=== PATIENT | male | born 1990 | race Two or more races ===

== ENCOUNTER 2021-02-21 11:15 | Outpatient (REF) | payer BC, SELFPAY ==
--- NOTE | ~2021-02-21 | XR_ITS ---
EXAMINATION: XR ANKLE, LEFT CLINICAL INFORMATION: Ankle injury. COMPARISON: None. TECHNIQUE: AP, lateral, and mortise views of the left ankle. FINDINGS: Marked bilateral soft tissue swelling is seen. A small ankle effusion is present. No fracture is seen. There is a tiny calcific density seen adjacent to the talus, near the distal fibula, which is of questionable significance but does not appear to be a fracture. The ankle mortise appears stable. XR/XR ankle LT min 3V IMPRESSION: Soft tissue swelling with no acute fracture.
== END 2021-02-21 11:16 | disposition home or self-care (01) ==
LOC: HO.XRAY 11:15
PROVIDERS: PCP Internal Medicine; Visit Provider Emergency Medicine
DX: S99.912A Unspecified injury of left ankle, initial encounter (principal); X58.XXXA Exposure to other specified factors, initial encounter; Y93.9 Activity, unspecified; Y92.9 Unspecified place or not applicable; Y99.9 Unspecified external cause status
CPT/HCPCS: 73610

== ENCOUNTER 2024-06-25 10:03 | Outpatient (REF) | payer BC, SELFPAY ==
[2024-06-25 11:23] LABS: MANUAL DIFF FLAG NO
[2024-06-25 11:26] LABS: Basophils Percent Auto 0.4 % (0-2); Eosinophils Absolute Auto 0.3 X10*3/uL (0.0-0.4); Eosinophils Percent Auto 3.6 % (0-4); Hematocrit 40.6 % (42.0-52.0); Hemoglobin 13.6 g/dl (14.0-18.0); Imm Gran Abs Auto 0.01 X10*3/uL (0.00-0.03); Imm Gran Pct Auto 0.1 % (0.0-0.4); Lymphocytes Absolute Auto 1.3 X10*3/uL (1.2-4.9); Lymphocytes Percent Auto 18.2 % (20-40); Mean Corpuscular HGB Conc 33.5 g/dl (31.0-36.0); Mean Corpuscular Hemoglobin 30.5 pg (27.0-33.0); Mean Platelet Volume 12.6 fL (9.4-12.4); Monocytes Absolute Auto 0.8 X10*3/uL (0.1-1.2); Monocytes Percent Auto 11.5 % (2-11); Neutrophils Absolute Auto 4.7 x10*3/uL (2.0-8.3); Neutrophils Percent Auto 66.2 % (45-73); Platelet Count 194 X10*3/uL (160-400); Red Blood Count 4.46 X10*6/uL (4.60-5.80); White Blood Count 7.2 X10*3/uL (4.8-10.8)
[2024-06-25 11:36] LABS: Estimated Average Glucose 103 mg/dL; Hemoglobin A1C 111.1377 umol/L; Hemoglobin A1c % 5.2 % (<6.0); Total Hemoglobin (HGBA1C) 3335.5205 umol/L
[2024-06-25 12:04] LABS: Alanine Aminotransferase 38 U/L (0-40); Alkaline Phosphatase 73 U/L (39-117); Anion Gap 9 (12-20); Aspartate Amino Transferase 47 U/L (5-37); Bilirubin Total 0.4 mg/dL (0.0-1.0); Blood Urea Nitrogen 31 mg/dL (9-16); Calcium 9.4 mg/dL (8.4-10.2); Carbon Dioxide 29 mmol/L (22-29); Chloride 104 mmol/L (96-108); Cholesterol 148 mg/dL (<200); Estimated Glomerular Filt Rate > 60; Glucose Random 85 mg/dL (60-115); HDL Cholesterol 53 mg/dL (>40); LDL Cholesterol Calculated 85 mg/dL (<100); Potassium 4.4 mmol/L (3.3-5.1); Sodium 138 mmol/L (135-145); TSH reflex Free T4 1.52 uIU/mL (0.32-4.0); Total Protein 7.7 g/dL (6.5-8.0); Triglycerides 54 mg/dL (<150); Vitamin D 25-OH Total 80.8 ng/mL (>30)
[2024-06-25 12:08] LABS: HIV AB/AG Nonreactive (Nonreactive); HIV Num 1 0.08 S/CO (0.00-0.99); ~HepC Num1 0.23 S/CO (0.00-0.79); ~Hepatitis C Antibody Nonreactive (Nonreactive)
== END 2024-06-25 10:04 | disposition home or self-care (01) ==
LOC: HO.HHCL 10:03
PROVIDERS: Visit Provider Internal Medicine
DX: Z00.00 Encounter for general adult medical examination without abnormal findings (principal); R20.9 Unspecified disturbances of skin sensation; Z13.1 Encounter for screening for diabetes mellitus; D64.9 Anemia, unspecified
CPT/HCPCS: 36415; 80053; 80061; 82306; 83036; 84443; 85025; 86803; 87389

== ENCOUNTER → 2024-07-18 19:00 | Outpatient (BNV) | payer BC, SELFPAY | PROVIDERS: PCP Internal Medicine; Visit Provider Psychiatry & Neurology Neurology | DX: G47.10 Hypersomnia, unspecified (principal) | CPT/HCPCS: 95810 ==

== ENCOUNTER → 2024-07-18 20:30 | Outpatient (REF) | payer BC, SELFPAY | LOC: HO.SL 20:30 | PROVIDERS: PCP Internal Medicine; Visit Provider Internal Medicine | DX: G47.13 Recurrent hypersomnia (principal) | CPT/HCPCS: 95810 ==

== ENCOUNTER 2024-07-19 08:50 | Outpatient (AMB) | payer BC, SELFPAY ==
--- NOTE | 2024-07-19 08:52 | MHC.OFFVIS ---
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 Patient reports that he was over weight, the pain had started in the right knee. The pain in the right knee was explained as a pinching sensation in the right knee. He has since lost about 50 lbs and stays active in the gym & plays basketball. While playing basketball over the summer he slipped on sticks that were on the court and planted ther right leg hard and believes that it hyperextended. Since then he has continued pain while exercising, particularly with squats and lunges. 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 Patient reports that he was over weight, the pain had started in the right knee. The pain in the right knee was explained as a pinching sensation in the right knee. He has since lost about 50 lbs and stays active in the gym & plays basketball. While playing basketball over the summer he slipped on sticks that were on the court and planted ther right leg hard and believes that it hyperextended. Since then he has continued pain while exercising, particularly with squats and lunges. 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 No effusion. Mild lateral patellar tilt bilaterally with mild crepitus but no pain and negative provocative exams. Stable ligamentous exam. Assessment & Plan Assessment & Plan (1) Patellofemoral crepitus: Code(s): M23.8X9 - Other internal derangements of unspecified knee Category: Medical Plan: There is some mild patellar lateral tilting bilaterally and he describes some discomfort with deep squats in his curious about how to continue to improve his function and strength without irritating his knees. I described to him some of the anatomy of the patellofemoral joint and I think avoiding deep squats focusing on hip so in the gluteals and stretching his heel cords would be beneficial. I wrote him a prescription for physical therapy. Plan Physical Therapy - [facility] Coding Level of Care Code New Pt Level 3 (18029) Diagnoses Patellofemoral crepitus M23.8X9
[2024-07-19 08:57] VITALS: BMI 27.9
== END 2024-07-19 09:13 | disposition home or self-care (01) ==
LOC: HO.HOS 08:51
PROVIDERS: PCP Internal Medicine; Visit Provider Orthopaedic Surgery
DX: M23.8X9 Other internal derangements of unspecified knee (principal)
CPT/HCPCS: 99203

== ENCOUNTER → 2024-07-19 08:50 | Outpatient (BNVA) | payer BC, SELFPAY | PROVIDERS: PCP Internal Medicine; Visit Provider Orthopaedic Surgery ==

== ENCOUNTER 2024-09-24 14:29 | Outpatient (AMB) | payer BC, SELFPAY ==
--- NOTE | 2024-09-24 14:33 | MHC.OFFVIS ---
Intake Visit Reasons: fertility consult Intake Note: Patient is present for FERTILITY CONSULT Urology Medication:NONE Antibiotic Allergy:NONE Blood Thinner:NONE Conductor And Engineer Required: No Allergies No Known Allergies Allergy (Verified 09/24/24 14:33) HPI Comments Details: Huber is a pleasant male. He is a patient of Dr. Mak. He is seen for the following urologic conditions - male infertility Male Infertility He presents today for - initial evaluation of male infertility Duration of infertility partner over 35 trying for greater than 1 year Prior no Coital timing - Patient is familiar with basal temperature monitoring to protect egg release Yes Puberty onset - 10 Prior genital surgery - none Risk factors for fertility include - present none - absent varicocele, genital infection, cryptorchidism, hormonal disorder, genetic disorder, cirrhosis, diabetes, gonadotoxin exposure - chemotherapy, radiation, occupational chemical, hyperthermia, cigarette Laboratories - pending Semen analysis - planned x2 - total motile sperm [] - consistent with [severe infertility, moderate infertility] - parameters include [volume low < 1.5cc, pH < 7.2] - morphology [normospermia, azoospermia, oligospermia, asthenospermia] Genetics - CFTR, Y chromosome micro deletion, Karyotype - [] [[facility] Ordering - [id number] - Chromosome Analysis, 32681- CFTR, 11410 - Y Chromosome Deletion] Therapeutic plan includes - complete evaluation References for Semen and Testosterone Enhancement Albert A, Chana D, Low C, Nicholas FD, Nida M, Christin A, Vena W, Baraby MG, Pivsravanthio R, Saydari AM, Peg M, Mahmood G. Effect of antioxidants on semen parameters in men with zcdup-rhermlw-bgvgnnydogxtpjtn: a network meta-analysis. Andrology. 2023;12(3):538-552. doi: 10.1111/andr.90111. Epub 2022Apr 09. PMID: 73840894. Compared to placebo,?l-carnitine, especially in combination with?p-ebtydv-ewrgesgvy (LAC), had the highest SUCRA for sperm concentration, progressive motility, and morphology. Folate was the only other compound effective on sperm concentration. Vitamin E+selenium or zinc had the highest SUCRA for total motility. A contribution on progressive motility was revealed for pentoxifylline and vitamin E+CoQ10 Shuling L, David Granado ML, Robbin SE, Maria Isabel Z, Asher TT, Gina JPW, Jules-Karol V, Lebron S, Prince JKY, Laureano TH. Do men with normal testosterone-oestradiol ratios benefit from letrozole for the treatment of male infertility? Reprod Biomed Online. 2018;38(1):39-45. doi: 10.1016/j.rbmo.2018.09.016. Epub 2017Jul 14. PMID: 97440200. Letrozole improves sperm concentration and increases testosterone-oestradiol ratio for men with oligozoospermia who have normal testosterone-oestradiol ratio. 2.5mg daily Chester A, Reanna C, Cornelio G, Dmitry Amado, Michael HO. Early Pharmacologic Approaches to Avert Anabolic Steroid-induced Male Infertility: A Narrative Review. Clin Ther. 2022;45(11):f238-q657. doi: 10.1016/j.clinthera.2022.09.003. Epub 2022Jun 20. PMID: 40860774. 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, face and neck Social History (Updated 07/19/24 @ 08:57 by Melisa Jacob CMA) Current occupational status: employed 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 Review of Systems Const Denies chills and Denies fever(s) Card Reports no additional complaints and Denies syncope Resp Denies cough GI Denies abdominal pain and Denies heartburn Reports as per HPI and Denies change in libido Neuro Denies syncope Psych Denies change in libido Endo Denies change in libido Physical Exam Const General: cooperative, healthy appearing, comfortable and no acute distress Orientation/consciousness: patient oriented x3 HEENT Face and sinus: Yes normal facial exam Mouth: moist mucous membranes Neck Neck: Yes normal visual inspection, Yes full ROM and Yes trachea midline Chest Chest palpation & inspection: normal inspection of the chest Resp Effort & Inspection: normal respiratory effort, able to speak in complete sentences and no respiratory distress GI Inspection: Yes normal to inspection Back/Spine/Pelvis Cervical Spine: normal cervical lordosis Thoracic/Lumbar Spine: thoracic and lumbar spine normal to inspection Skin General skin exam: no rashes or lesions noted Neuro General: patient oriented x3, gait normal, tone normal and moves all extremities Extrem General: Yes normal to inspection and Yes capillary refill normal Assessment & Plan Assessment & Plan (1) Male infertility, unspecified: Code(s): N46.9 - Male infertility, unspecified Category: Medical Plan Baseline lab work Complete fellows semen analysis Orders: Orders Follicle Stimulating Hormone Today N46.9 - Male infertility, unspecified Lutenizing Hormone Today N46.9 - Male infertility, unspecified Testosterone, Free/Total Today N46.9 - Male infertility, unspecified Prolactin Today N46.9 - Male infertility, unspecified Patient Instructions: Imaging studies, laboratory and physical exam results were discussed and reviewed in detail. No major barriers to patient understanding were identified. An opportunity to ask questions regarding the treatment plan was provided. All questions were answered. The patient expressed understanding and agreement with the above treatment plan. The patient is aware they should contact our office by phone for worsening of their current condition or the appearance of new urologic symptoms. Compliance is encouraged with any medications and followup testing that is ordered. It is a privilege to participate in the urologic care of your patient. If you have any questions or concerns regarding treatment for the above conditions, or other urologic issues, please do not hesitate to contact me. The office telephone contact is [phone]. This note is constructed using voice recognition software. While every effort has been made to ensure accuracy closet organizer errors may have been included. Yours sincerely, Dr Kuldeep Baumann MD, [facility] - Urology Providers of Expert, Compassionate Care for the Genitourinary System Coding Level of Care Code New Pt Level 4 (92947) Diagnoses Male infertility, unspecified N46.9
== END 2024-09-24 15:09 | disposition home or self-care (01) ==
PROVIDERS: PCP Internal Medicine; Visit Provider Urology
DX: N46.9 Male infertility, unspecified (principal)
CPT/HCPCS: 99204

== ENCOUNTER 2024-09-24 14:29 | Outpatient (REF) | payer BC, SELFPAY ==
[2024-09-24 15:30] LABS: MANUAL DIFF FLAG NO
[2024-09-24 15:38] LABS: Basophils Percent Auto 0.3 % (0-2); Eosinophils Absolute Auto 0.3 X10*3/uL (0.0-0.4); Eosinophils Percent Auto 3.7 % (0-4); Hematocrit 40.9 % (42.0-52.0); Hemoglobin 13.8 g/dl (14.0-18.0); Imm Gran Abs Auto 0.03 X10*3/uL (0.00-0.03); Imm Gran Pct Auto 0.4 % (0.0-0.4); Lymphocytes Absolute Auto 1.6 X10*3/uL (1.2-4.9); Mean Corpuscular HGB Conc 33.7 g/dl (31.0-36.0); Mean Corpuscular Hemoglobin 29.9 pg (27.0-33.0); Mean Corpuscular Volume 88.7 fL (80.0-98.0); Mean Platelet Volume 11.4 fL (9.4-12.4); Monocytes Absolute Auto 0.9 X10*3/uL (0.1-1.2); Monocytes Percent Auto 11.2 % (2-11); Neutrophils Percent Auto 64.4 % (45-73); Platelet Count 210 X10*3/uL (160-400); Red Blood Count 4.61 X10*6/uL (4.60-5.80); Red Cell Distribution Width 12.5 % (11.0-16.0); White Blood Count 7.8 X10*3/uL (4.8-10.8)
[2024-09-24 16:12] LABS: Iron 70 mcg/dL (45-160); Percent Iron Saturation 27 % (15-50); Total Iron Binding Capacity 257 mcg/dL (228-428); Unsaturated Iron Binding 187 ug/dL
[2024-09-24 16:33] LABS: Ferritin 147 ng/mL (20-250)
[2024-09-24 16:38] LABS: Folate 9.2 ng/mL (> or = 4.0); Vitamin B12 1448 pg/mL (200-900)
[2024-09-26 02:58] LABS: Follicle Stimulating Hormone 2.6 mIU/mL (1.4-12.8); Prolactin 9.2 ng/mL (2.0-18.0)
[2024-09-30 16:19] LABS: Testosterone, Free 66.5 pg/mL (35.0-155.0); Testosterone, Total 380 ng/dL (250-1100)
== END 2024-09-24 14:30 | disposition home or self-care (01) ==
LOC: HO.LAB 14:29
PROVIDERS: PCP Internal Medicine; Visit Provider Urology
DX: N46.9 Male infertility, unspecified (principal); D64.9 Anemia, unspecified
CPT/HCPCS: 36415; 82607; 82728; 82746; 83001; 83002; 83540; 84146; 84402; 84403; 85025

== ENCOUNTER 2025-05-20 11:02 | Outpatient (REF) | payer BC, SELFPAY ==
--- OUTSIDE RECORDS SUMMARY | 2025-05-20 09:45 | XMS_ITS | Encounter Summary ---
Author Organization [facility] Address [address] [place] [address] [address] [place] [address] Care Team Providers Care Systems Analyst Developer Name Role Phone Corie Cortes MD Primary Care Provide r Reason for Referral * Consultation (Routine) - Pending Review Specialty Diagnoses / Procedures Referred By Obi silva Referred To Contact Physical Therapy Diagnoses Right sciatic nerve pain Corie Cortes MD [address] [place] [phone] Phone: tel: fax: Referral ID Status Reason Start Date Expiration Date Visits Requested Visits Authorized [id number] Pending Review Specialty Services Required 05/20/2025 05/20/2026 1 1 Scheduling Instructions Please [facility] thank you Reason for Visit * Reason Comments Follow-up Encounter Details Date Type Department Care Team ([facility] st Contact Info) Description 05/20/2025 9:45 AM EDT Office Visit [facility] [address] [place] [address] [phone] Corie Cortes MD [address] [place] [address] [phone] 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 (Primary Dx); Right sciatic nerve pain; Elevated LFTs; Anemia, unspecified type; Encounter for immunization Social History Tobacco Use Types Packs/Day Years Used Date Smoking Tobacco: Never Passive Smoke Exposure: Never Smokeless Tobacco: Never Depression Answer Date Recorded Patient Health Questionnaire-9 Score 0 06/25/2024 Patient Health Questionnaire-9 Score 0 06/25/2024 Last PHQ-9: Questionnaire Data Not on file 1 Housing Stability Answer Date Recorded What is your housing situation today? I have john rodriguez 06/25/[address] you li ve. Do you have problems with any of the following? None of the above 06/25/2024 Food Insecurity Answer Date Recorded Within the past 12 months, y ou worried that your food would run out before you got money to buy more: Never True 06/25/2024 Within the past 12 months,th e food you bought just didn't last and you didn't have enough money to get more: Never True 07/2024 Transportation Answer Date Recorded In the past 12 months, has l ack of transportation kept you from medical appts, meetings, work or from getting things needed for daily living? No 06/25/2024 Utilities Answer Date Recorded In the past 12 months, has t he electric, gas, oil or water company threatened to shut off services in your home? No 06/25/2024 Depression Answer Date Recorded Patient Health Questionnaire-2 Score 0 06/25/2024 Internet Access Answer Date Recorded Internet Access Q1 Yes 06/25/2024 Internet Access Q2 Not on file 06/25/2024 Sex and Gender Information Value Date Recorded Sex Assigned at Male 07/15/2022 10:35 AM EDT Legal Sex Male 10:35 AM EDT Gender Identity Male 07/15/2022 10:35 AM EDT Sexual Orientation Straight 07/15/2022 10 :35 AM EDT documented as of this encounter Last Filed Vital Signs Vital Sign Reading Time Taken Comments Blood Pressure 118/80 05/20/2025 9:50 AM EDT Pulse 80 05/20/2025 9:50 AM EDT Temperature 36.5 C (97.7 F) 05/20/2025 9:50 AM EDT Respiratory Rate 20 05/20/2025 9:50 AM EDT Oxygen Saturation - - Inhaled Oxygen Concentration - - Weight 96.6 kg (213 lb) 05/20/2025 9:50 AM EDT Height 188 cm (6' 2 ) 05/20/2025 9:50 AM EDT Body Mass Index 27.35 05/20/2025 9:50 AM EDT documented in this encounter Plan of Treatment Upcoming Encounters Date Type Department Care Team (Late st Contact Info) Description 06/20/2025 10:30 AM EDT Office Visit [facility] [address] [place] [phone] 06/29/2025 11:15 AM EDT Office Visit [facility] [address] [place] [phone] Corie Cortes MD [address] [place] [address] Scheduled Orders Name Type Priority Associated Diagnoses Orde r Schedule Comprehensive Metabolic Panel Lab Routine Elevated LFTs Expected: 05/20/2025 (Approximate), Expires: 05/20/2026 CBC auto differential Lab Routine Anemia, unspecified type Expected: 05/20/2025 (Approximate), Expires: 05/20/2026 Scheduled Referrals Name Type Priority Associated Diagnoses Orde r Schedule Referral to Physical Therapy Outpatient Referral Routine Right sciatic nerve pain Expected: 05/20/2025 (Approximate), Expires: 05/20/2026 documented as of this encounter Visit Diagnoses Diagnosis 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- Primary Right sciatic nerve pain Elevated LFTs Other abnormal blood chemistry Anemia, unspecified type Encounter for immunization documented in this encounter Additional Health Concerns Assessment Noted Time PHQ-9 Depression Total Score: 0 06/25/20 24 9:06 AM EDT documented as of this encounter Care Teams Systems Analyst Developer Relationship Specialty Start Date End Date Corie Cortes MD [address] [place] [phone] PCP - General Family Medicine 11/30/18 documented as of this encounter
--- OUTSIDE RECORDS SUMMARY | 2025-05-20 12:04 | XMS_ITS | Encounter Summary ---
Author Organization [employer] Address [address] [facility] 7[address] [place] [address] Care Team Providers Care Agriscience Teacher Name Role Phone Corie Cortes MD Primary Care Provide r Encounter Details Date Type Department Care Team (Latest Contact Info) Description 05/20/2025 Travel Social History Tobacco Use Types Packs/Day Years [...] AM EDT documented as of this encounter Plan of Treatment Upcoming Encounters Date Type Department Care Team (Late st Contact Info) Description 06/20/2025 10:30 AM EDT Office Visit [facility] [address] [place] [phone] 06/29/2025 11:15 AM EDT Office Visit [facility] [address] [place] [phone] Corie Cortes MD [address] [place] [phone] documented as of this encounter Visit Diagnoses Not on filedocumented in this encounter Additional Health Concerns Assessment Noted Time PHQ-9 Depression Total Score: 0 06/25/20 24 9:06 AM EDT documented as of this encounter Care Teams Agriscience Teacher Relationship Specialty Start Date End Date Corie Cortes MD [address] [place] [phone] PCP - General Family Medicine 11/30/18 documented as of this encounter
--- OUTSIDE RECORDS SUMMARY | 2025-05-20 12:04 | XMS_ITS | Encounter Summary ---
Author Organization [employer] Address [address] [facility] 7 [place] [address] Care Team Providers Care Vp Cardiovascular Name Role Phone Corie Cortes MD Primary Care Provide r Reason for Visit * Reason Onset Date Comments chart prep 05/19/2025 Encounter Details Date Type Department Care Team ([facility] st Contact Info) Description 05/19/[address] [facility] [address] [place] [address] Corie Cortes MD [address] [place] [address] chart prep Social History Tobacco Use Types Packs/Day Years [...] AM EDT documented as of this encounter Miscellaneous Notes * Telephone Encounter - Cary Alexis MA - 05/19/2025 10:46 AM EDT Chart Prep Labs: done Images: not done ( No show to US abdomen 07/12/2024) Referrals: complete Vaccines due: Covid, Flu, Hep B, and HPV Screenings: not applicable Overdue care gaps: SBIRT, PHQ-9, TRACIE-7, and Tobacco documented in this encounter Plan of Treatment Upcoming Encounters Date Type Department Care Team (Late st Contact Info) Description 06/20/2025 10:30 [address] EDT Office [address] [facility] [address] [place] [phone] 06/29/2025 11:15 AM EDT Office [address] [facility] [address] [place] [phone] Corie Cortes MD [address] [place] [phone] documented as of this encounter Visit Diagnoses Not on filedocumented in this encounter Additional Health Concerns Assessment Noted Time PHQ-9 Depression Total Score: 0 06/25/20 24 9:06 AM EDT documented as of this encounter Care Teams Vp Cardiovascular Relationship Specialty Start Date End Date Corie Cortes MD [address] [place] [address] PCP - General Family Medicine 11/30/18 documented as of this encounter
--- OUTSIDE RECORDS SUMMARY | 2025-05-20 12:05 | XMS_ITS | Encounter Summary ---
Author Organization [employer] Address [address] [facility] [address] 7[address] [place] [address] Care Team Providers Care Managing Director Name Role Phone Corie Cortes MD Primary Care Provide r Encounter Details Date Type Department Care Team ([facility] st Contact Info) Description 09/27/2024 Orders Only [facility] [address] [place] [address] Corie Cortes MD [address] [place] [address] Social History Tobacco Use Types Packs/Day Years [...] Description 06/20/2025 10:30 AM EDT Office Visit [facility] [address] [place] [phone] 06/29/2025 11:15 AM EDT Office Visit [address] [address] Corie Cortes MD [address] [place] [phone] documented as of this encounter Visit Diagnoses Not on filedocumented in this encounter Additional Health Concerns Assessment Noted Time PHQ-9 Depression Total Score: 0 06/25/20 24 9:06 AM EDT documented as of this encounter Care Teams Managing Director Relationship Specialty Start Date End Date Corie Cortes MD [address] [place] [phone] PCP - General Family Medicine 11/30/18 documented as of this encounter
--- OUTSIDE RECORDS SUMMARY | 2025-05-20 12:05 | XMS_ITS | Clinical Summary ---
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/12/2023 Dermatitis, contact, from chemicals 02/12/2023 Obesity 02/11/2023 Bradycardia 02/11/2023 Lipoma of skin and subcutaneous tissue of neck 0 11/05/2018 Alopecia 11/05/2018 Encounters Date Type Department Care Team Description 05/20/2025 9:45 AM EDT Office Visit [facility] [address] [place] [address] [phone] Corie Cortes MD 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 (Primary Dx); Right sciatic nerve pain; Elevated LFTs; Anemia, unspecified type; Encounter for immunization 05/20/2025 Travel 05/19/2025 Telephone [facility] [address] [place] [address] Corie Cortes MD chart prep 05/13/2025 Travel 05/11/2025 Patient Outreach [facility] [address] [place] [address] Corie Cortes MD Pre-visit Planning (SDOH screening completed on 02/22/2025) 02/22/2025 Telephone [facility] [address] [place] [address] Corie Cortes MD SEP REACLL 02/22/2025 Patient Outreach [facility] [address] [place] [address] Corie Cortes MD from Last 3 Months Immunizations Immunization Administration Dates Next Due HepB-CpG 05/20/2025 Influenza injectable quadrivalent preservative f ree 11/05/2018 Influenza, seasonal, injectable, preservative fr ee 06/25/2024 Moderna Covid-19 Vaccine 12+ 02/16/2021,01/20/20 21 Tdap 11/05/2018 Varicella 12/07/2018 Social History Tobacco Use Types Packs/Day Years Used Date Smoking Tobacco: Never Passive Smoke Exposure: Never Smokeless Tobacco: Never Tobacco Cessation:Counseling Given: Not Answered Depression Answer Date Recorded Patient Health Questionnaire-9 [...] Orientation Straight 07/15/2022 10 :35 AM EDT Last Filed Vital Signs Vital Sign Reading Time Taken Comments Blood Pressure 118/80 05/20/2025 9:50 AM EDT Pulse 80 05/20/2025 9:50 AM EDT Temperature 36.5 C (97.7 F) 05/20/2025 9:50 AM EDT Respiratory Rate 20 05/20/2025 9:50 AM EDT Oxygen Saturation 98% 06/25/2024 9:03 AM EDT Inhaled Oxygen Concentration - - Weight 96.6 kg (213 lb) 05/20/2025 9:50 AM EDT Height 188 cm (6' 2 ) 05/20/2025 9:50 AM EDT Body Mass Index 27.35 05/20/2025 9:50 AM EDT Plan of Treatment Upcoming Encounters Date Type Department Care Team (Late st Contact Info) Description 06/20/2025 10:30 AM EDT Office Visit [facility] [address] [place] [phone] 06/29/2025 11:15 AM EDT Office Visit [facility] [address] [place] [phone] Corie Cortes MD [address] [place] [phone] Health Maintenance Due Date Last Done Comments Family Planning (PISQ) 12/14/2003 HPV Vaccines (1 - Male 3-dos e series) 12/14/2003 COVID-19 Vaccine ( - 2024-2 6 season) 2025 02/16/2021, 01/19/2021 Influenza Vaccine (#1) 2025 , 11/05/2018 Hepatitis B Vaccines (2 of 2 - CpG 2-dose series) 06/17/2025 05/20/2025 Alcohol/Substance Use Screening 06/25/2025 06/25/2024 Depression Screening 06/25/2025 06/25/2024, 06/25/2024 Tobacco Screening 06/25/2025 06/25/2024 SDOH Screening 02/22/2026 02/22/2025 Disability Screening 05/13/2026 05/13/2025 DTaP/Tdap/Td Vaccines (2 - T d or Tdap) 11/05/2028 11/05/2018 Lipid Panel 06/25/2029 06/25/2024, 11/16/2021 Zoster Vaccines (1 of 2) 2038 RSV Patients and Patients Aged 60 years or older (1 - 1-dose 75+ series) 12/14/2063 HIV Screening Completed 06/25/2024, 11/16/2021 Hepatitis C Screening Completed 06/25/2024 , 11/16/2021 HIB Vaccines Aged Out No longer eligi ble based on patient's age to complete this topic Hepatitis A Vaccines Aged Out No long er eligible based on patient's age to complete this topic IPV Vaccines Aged Out No longer eligi ble based on patient's age to complete this topic Meningococcal B Vaccine Aged Out No l onger eligible based on patient's age to complete this topic Meningococcal Vaccine Aged Out No sai nacho eligible based on patient's age to complete this topic Pneumococcal Vaccine: Pediatrics (0 to 5 Years) and At-Risk Patients (6 to 49) Years Aged Out No longer eligible b ased on patient's age to complete this topic RSV under 20 months Aged Out No longe r eligible based on patient's age to complete this topic Rotavirus Vaccines Aged Out No longer eligible based on patient's age to complete this topic Procedures Procedure Name Priority Date/Time Associated Diagnosis Comments HEPATITIS C AB W/REFL TO HCV RNA, QN, PCR Routine 06/25/2024 10:05 AM EDT Encounter for preventive care HIV 1/2 ANTIGEN/ANTIBODY, FOURTH GENERATION W/RFL Routine 06/25/2024 10:05 AM EDT Encounter for preventive care LIPID PANEL, STANDARD Routine 06/25/2024 10:05 AM EDT Encounter for preventive care from Last 3 Months or Most Recently Relevant to Health Maintenance Results * Hepatitis C Antibody with Reflex to HCV, RNA, Quantitative, Real-Time PCR (06/25/2024 10:05 AM EDT) Hepatitis C Antibody Nonreactive Nonreactive [facility] Comment:Antibodies to HCV no t detected; does not exclude early acuteHCV infection. Blood Venous blood specimen / Unknown 06/25/2024 10:05 AM EDT 06/25/2024 11:17 AM EDT Corie Mak MD LAB BLOOD ORDERABLES Final Result [facility] [address] [place] [phone] * HIV-1/2 Antigen and Antibodies, Fourth Generation, with Reflexes (06/25/2024 10:05 AM EDT) HIV AB/AG Nonreactive Nonreactive [facility] Comment:HIV-1 p24 Ag and/or HIV-1/HIV-2 Ab not detected.A test result that is nonreactive does not exclude thepossibility of exposure to or infection with HIV-1 and/orHIV-2. Nonreactive results in this assay for individualswith prior exposure to HIV-1 and/or HIV-2 may be due toantigen and antibody levels that are below the limit ofdetection of this assay.The XODISniReframe It HIV Ag/Ab Combo assay result andsupplemental assay results should be interpreted inconjunction with the patient's clinical presentation,history and other laboratory results. If the results areinconsistent with clinical evidence, additional testing issuggested to confirm the result. Blood Venous blood specimen / Unknown 06/25/2024 10:05 AM EDT 06/25/2024 11:17 AM EDT us Corie Mak MD LAB BLOOD ORDERABLES Final Result Performing Organization Address [facility] Co de Phone Number [facility] [address] [place] [phone] * Lipid Panel, Standard (06/25/2024 10:05 AM EDT) Triglycerides 54 <150 mg/dL [facility] Comment:Desirable Triglyceri de: less than 150 mg/dLBorderline High Triglyceride 150-199 mg/dLHigh Triglyceride: 200-499 mg/dLVery High Triglyceride: greater than or equal to 5OO mg/dL Cholesterol 148 <200 mg/dL [facility] Comment:Desirable Cholestero l: less than 200 mg/dLBorderline High Cholesterol: 200-239 mg/dLHigh Cholesterol: greater than 239 mg/dL LDL Cholesterol Calculated 85 <100 mg/dL [facility] Comment:Desirable LDL: less than 100 mg/dLNear Optimal/Above Optimal LDL: 110- 129 mg/dLBorderline High LDL: 130-159 mg/dLHigh LDL: 160-189 mg/dLVery High LDL: greater than or equal to 190 mg/dL HDL Cholesterol 53 >40 mg/dL [facility] Comment:Desirable HDL: great er than 40 mg/dL Note: This HDL assay may give artificially low results in patients with liver disease. 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
[2025-05-20 13:08] LABS: MANUAL DIFF FLAG NO
[2025-05-20 13:23] LABS: Hematocrit 39.4 % (42.0-52.0); Hemoglobin 13.3 g/dl (14.0-18.0); Imm Gran Abs Auto 0.01 X10*3/uL (0.00-0.03); Imm Gran Pct Auto 0.1 % (0.0-0.4); Lymphocytes Absolute Auto 1.2 X10*3/uL (1.2-4.9); Mean Corpuscular HGB Conc 33.8 g/dl (31.0-36.0); Mean Corpuscular Hemoglobin 30.0 pg (27.0-33.0); Mean Corpuscular Volume 88.7 fL (80.0-98.0); NRBC Abs Auto 0.000 X10*3/uL (0.0-0.012); NRBC Pct Auto 0.0 /100WBC (0.0-0.2); Platelet Count 210 X10*3/uL (160-400); Red Blood Count 4.44 X10*6/uL (4.60-5.80); White Blood Count 7.3 X10*3/uL (4.8-10.8)
[2025-05-20 13:47] LABS: Alanine Aminotransferase 51 U/L (0-40); Albumin Level 4.1 g/dL (3.5-5.0); Alkaline Phosphatase 68 U/L (39-117); Anion Gap 11 (12-20); Aspartate Amino Transferase 57 U/L (5-37); Blood Urea Nitrogen 27 mg/dL (9-16); Calcium 9.1 mg/dL (8.4-10.2); Carbon Dioxide 26 mmol/L (22-29); Chloride 105 mmol/L (96-108); Estimated Glomerular Filt Rate > 60; Potassium 4.2 mmol/L (3.3-5.1); Sodium 138 mmol/L (135-145); Total Protein 7.3 g/dL (6.5-8.0)
== END 2025-05-20 11:03 | disposition home or self-care (01) ==
LOC: HO.HHCL 11:02
PROVIDERS: PCP Internal Medicine; Visit Provider Internal Medicine
DX: R79.89 Other specified abnormal findings of blood chemistry (principal); D64.9 Anemia, unspecified
CPT/HCPCS: 36415; 80053; 85025